=== PATIENT | male | born 2000 | race Caucasian/White ===

== ENCOUNTER 2025-04-11 09:50 | Outpatient (CLI) | payer BC ==
[~2025-04-11 09:50] MED LIST: iohexol 300mg/ml 100ml inj. ONE
--- NOTE | 2025-04-11 12:27 | RADIOLOGY REPORT ---
Exam: CT CT ABDOMEN PELVIS W/ IV ORAL CONTRAST History: RIGHT LOWER QUADRANT ABDOMINAL SWELLING, MASS AND LUMP COMPARISON: None Technique: Multidetector spiral CT of the abdomen and pelvis was performed from lung bases to pubic symphysis. Intravenous contrast was administered during this examination. Portal venous imaging was obtained. Axial, coronal and sagittal multiplanar reformats were performed by the technologist on a separate workstation. Radiation Dose : 1. Abdomen/Pelvis: CTDIvol 20.6 mGy, DLP 1018.7 mGy*cm. Findings: Lung Bases: No acute or significant lung base finding. Normal heart size. No pleural or pericardial effusion. Liver: Hepatomegaly, 18.1 cm craniocaudal. Gallbladder and Biliary Tree: Unremarkable Spleen: Splenomegaly, 13.5 cm. Pancreas: The pancreas is normal in appearance without focal lesions or abnormal enhancement. Adrenal Glands: Unremarkable Kidneys: No hydronephrosis. Bladder: Unremarkable Bowel: The stomach is grossly normal in appearance. Moderate volume colonic stool. [id number] colonic bowel wall thickening involving the rectosigmoid colon. The appendix is not visualized; however, no secondary findings of acute appendicitis identified. Ascites: Absent Lymphadenopathy: No mesenteric, retroperitoneal or periportal lymphadenopathy. Abdominal Wall and Mesentery: Unremarkable. Vasculature: The visualized abdominal aorta is normal in size and caliber. Abdominal and pelvic vessels demonstrate normal enhancement. Pelvic Organs: Unremarkable Musculoskeletal: No aggressive focal bony lesions, acute fractures or dislocation. IMPRESSION: [id number] colonic bowel wall thickening involving the rectosigmoid colon. Findings may represent infectious or inflammatory colitis. Moderate volume colonic stool. Hepatosplenomegaly. Radiation optimization: All CT scans at this facility use at least one of these dose optimization techniques: automated exposure control mA and/or kV adjustment per patient size (includes targeted exams where dose is matched to clinical indication) or iterative reconstruction.
== END 2025-04-11 23:59 | disposition home or self-care (01) ==
LOC: RAD 09:50
PROVIDERS: ATTEND Physician Assistant
DX: R16.2 Hepatomegaly with splenomegaly, not elsewhere classified (principal); R10.31 Right lower quadrant pain; R19.03 Right lower quadrant abdominal swelling, mass and lump; R53.82 Chronic fatigue, unspecified
CPT/HCPCS: 74177; Q9967